=== PATIENT | male | born 1980 | race Native Hawaiian/Other Pacific Islander ===

== ENCOUNTER 2020-02-18 16:16 | Emergency (ER) ==
[~2020-02-18] VITALS: Ht 167.6 cm; Wt 77.3 kg
== END 2020-02-18 17:50 | disposition home or self-care (01) ==
LOC: COL.ER 16:16
DX: S61.042A Puncture wound with foreign body of left thumb without damage to nail, initial encounter (principal); F17.220 Nicotine dependence, chewing tobacco, uncomplicated; X58.XXXA Exposure to other specified factors, initial encounter; Y92.828 Other wilderness area as the place of occurrence of the external cause

== ENCOUNTER 2023-11-20 18:17 | Emergency (ER) | payer OTHER ==
[~2023-11-20] VITALS: Ht 167.6 cm; Wt 75.5 kg
[2023-11-20 18:35] VITALS: TEMP 98
[2023-11-20 19:48] LABS: COLLECTION METHOD CLEAN CATCH
[2023-11-20 19:56] LABS: BASO # 0.1 K/mm3 (0.0-0.2); BASO % 0.6 % (0.0-2.0); EOS # 0.2 K/mm3 (0.0-0.7); EOS % 2.1 % (0.0-4.0); GRAN # 4.1 K/mm3 (1.4-6.5); GRAN % 50.5 % (42.2-75.2); HEMATOCRIT 46.2 % (42.0-52.0); HEMOGLOBIN 16.3 g/dl (13.5-18.0); LYMPH # 2.9 K/mm3 (1.2-3.4); LYMPH % 35.4 % (20.0-51.0); MEAN CELL VOLUME 96 fl (80.0-100.0); MEAN CORPUSCULAR HEMOGLOBIN 34 pg (27-31); MEAN CORPUSCULAR HGB CONC 35 g/dl (33.0-37.0); MEAN PLATELET VOLUME 8.4 fl (7.4-10.4); MONO # 0.9 K/mm3 (0.1-0.6); MONO % 10.9 % (1.7-9.3); PLATELET COUNT 235 K/mm3 (130-400); REDCELL DISTRIBUTION WIDTH-CV 12.2 % (11.5-14.5)
[2023-11-20 19:58] LABS: URINE APPEARANCE CLEAR (CLEAR/HAZY); URINE BLOOD NEGATIVE (NEGATIVE); URINE COLOR YELLOW (YELLOW); URINE GLUCOSE NEGATIVE (NEGATIVE); URINE KETONE NEGATIVE (NEGATIVE); URINE NITRATE NEGATIVE (NEGATIVE); URINE PROTEIN(semi-quant) NEGATIVE (NEGATIVE)
[2023-11-20] MEDS ORDERED: Morphine 4 MG/ML VIAL IV ONE (20:00)
[2023-11-20 20:08] LABS: ALANINE AMINOTRANSFERASE 21 U/L (0-55); ALBUMIN 3.6 gm/dL (3.5-5.0); ALKALINE PHOSPHATASE 75 U/L (40-150); ANION GAP 8 mmol/L (7-16); AST,SGOT 28 U/L (5-34); BILIRUBIN,TOTAL 0.2 mg/dL (0.2-1.2); BLOOD UREA NITROGEN 12 mg/dL (9-21); C-REACTIVE PROTEIN 0.24 mg/dL (0.00-0.50); CALCIUM 9.3 mg/dL (8.4-10.2); CARBON DIOXIDE 27 mmol/L (22-29); CHLORIDE 104 mmol/L (98-107); CREATININE, serum 0.86 mg/dL (0.72-1.25); GLUCOSE 94 mg/dL (70-99); LIPASE 23 U/L (8-78); SODIUM 139 mmol/L (136-145); TOTAL PROTEIN 7.5 gm/dL (6.2-8.1)
[2023-11-20 20:19] LABS: TROPONIN-I < 0.010 ng/mL (0.00-0.033)
[2023-11-20] MEDS ORDERED: FLEXERIL 1010 MG/TAB PO (21:45)
[2023-11-20 21:55] VITALS: BP 153/91; PULSE 59
== END 2023-11-20 21:55 | disposition home or self-care (01) ==
LOC: COL.ER 18:17
PROVIDERS: Nurse Practitioner
DX: M54.6 Pain in thoracic spine (principal); R07.81 Pleurodynia; X50.0XXA Overexertion from strenuous movement or load, initial encounter; Y93.F2 Activity, caregiving, lifting
CPT/HCPCS: J2270